=== PATIENT | male | born 1950 | race Caucasian/White ===

== ENCOUNTER → 2022-03-07 13:40 | Outpatient (BNVA) | payer MEDICARE, MEDICAID, SELFPAY | PROVIDERS: Visit Provider Psychiatry & Neurology Neurology | DX: G40.909 Epilepsy, unspecified, not intractable, without status epilepticus (principal); R27.0 Ataxia, unspecified; Z79.899 Other long term (current) drug therapy | CPT/HCPCS: 99202 ==

== ENCOUNTER 2022-03-27 12:46 | Outpatient (REF) | payer MEDICARE, MEDICAID, SELFPAY ==
--- NOTE | 2022-03-27 12:52 | EEG_ITS ---
Waking background activity consists of a well-defined moderate voltage 9 hertz alpha frequency, intermixed anteriorly with low-voltage fast frequencies. Photic stimulation is without activation. Hyperventilation was omitted. No focal, lateralizing, or paroxysmal discharges seen. IMPRESSION: This awaking EEG is within normal limits. MD NELA Arreola/ALISON / [id number]
== END 2022-03-27 12:47 | disposition home or self-care (01) ==
LOC: HO.NEURO 12:46
PROVIDERS: PCP Internal Medicine; Visit Provider Psychiatry & Neurology Neurology
DX: G40.909 Epilepsy, unspecified, not intractable, without status epilepticus (principal)
CPT/HCPCS: 95816

== ENCOUNTER → 2022-07-01 12:27 | Outpatient (BNVA) | payer MEDICARE, MEDICAID, SELFPAY | PROVIDERS: PCP Internal Medicine; Visit Provider Psychiatry & Neurology Neurology | DX: G40.909 Epilepsy, unspecified, not intractable, without status epilepticus (principal); R27.0 Ataxia, unspecified; Z79.899 Other long term (current) drug therapy | CPT/HCPCS: 99212 ==

== ENCOUNTER 2022-08-02 10:58 | Outpatient (REF) | payer MEDICARE, MEDICAID, SELFPAY ==
--- NOTE | ~2022-08-02 | MR_ITS ---
EXAMINATION: MR BRAIN WITHOUT CONTRAST CLINICAL INFORMATION: Ataxia. COMPARISON: None available. TECHNIQUE: MRI of the brain was obtained using routine sequences without contrast. FINDINGS: No focal restricted diffusion is demonstrated to suggest acute or subacute cerebral ischemia. No evidence of acute or chronic hemorrhagic products on heme-sensitive imaging. Scattered and partially confluent periventricular, deep white matter, and brainstem T2 FLAIR hyperintensities consistent with moderate underlying microangiopathy. Proportional prominence of the ventricles and sulcal spaces without evidence of obstructive hydrocephalus. No abnormal mass effect. No midline shift. Normal appearance of the pituitary gland. Normal positioning of the cerebellar tonsils. Normal arterial and venous vascular flow voids are present. Normal, homogeneous marrow signal. Moderate mucosal thickening of the paranasal sinuses. Mild rightward nasal septal deviation. Small left-sided mastoid effusion. No signal abnormalities within the right-sided mastoid. MR/MR head/brain wo con IMPRESSION: 1. No acute intracranial abnormalities. 2. Moderate underlying microangiopathy and generalized cerebral volume loss.
== END 2022-08-02 10:59 | disposition home or self-care (01) ==
LOC: HO.MRI 10:58
PROVIDERS: PCP Internal Medicine; Visit Provider Psychiatry & Neurology Neurology
DX: R27.0 Ataxia, unspecified (principal)
CPT/HCPCS: 70551

== ENCOUNTER 2023-01-13 12:28 | Outpatient (AMB) | payer MEDICARE, MEDICAID, SELFPAY ==
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
[2023-01-13 12:46] VITALS: BP 126/70; PULSE 92; RESP 16; O2SAT 96; BMI 26.2
== END 2023-01-13 13:13 | disposition home or self-care (01) ==
PROVIDERS: Visit Provider Psychiatry & Neurology Neurology
DX: G40.909 Epilepsy, unspecified, not intractable, without status epilepticus (principal); R27.0 Ataxia, unspecified
CPT/HCPCS: 99214

== ENCOUNTER → 2023-01-13 12:28 | Outpatient (BNVA) | payer MEDICARE, MEDICAID, SELFPAY | PROVIDERS: Visit Provider Psychiatry & Neurology Neurology | DX: G40.409 Other generalized epilepsy and epileptic syndromes, not intractable, without status epilepticus (principal); R27.0 Ataxia, unspecified; H91.90 Unspecified hearing loss, unspecified ear | CPT/HCPCS: 99212 ==

== ENCOUNTER 2023-07-15 12:01 | Outpatient (AMB) | payer MEDICARE, MEDICAID, SELFPAY ==
[2023-07-15 12:27] VITALS: BP 106/68; PULSE 92; RESP 17; O2SAT 93; BMI 27.0
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
== END 2023-07-15 12:56 | disposition home or self-care (01) ==
PROVIDERS: PCP Internal Medicine; Visit Provider Psychiatry & Neurology Neurology
DX: G40.909 Epilepsy, unspecified, not intractable, without status epilepticus (principal); R27.0 Ataxia, unspecified
CPT/HCPCS: 99214

== ENCOUNTER 2023-07-15 13:13 | Outpatient (REF) | payer MEDICARE, MEDICAID, SELFPAY ==
[2023-07-15 18:54] LABS: MANUAL DIFF FLAG NO
[2023-07-15 19:09] LABS: Basophils Percent Auto 0.4 % (0-2); Eosinophils Absolute Auto 0.2 X10*3/uL (0.0-0.4); Eosinophils Percent Auto 3.1 % (0-4); Hematocrit 40.8 % (42.0-52.0); Hemoglobin 13.4 g/dl (14.0-18.0); Imm Gran Abs Auto 0.06 X10*3/uL (0.00-0.03); Imm Gran Pct Auto 0.8 % (0.0-0.4); Lymphocytes Absolute Auto 2.3 X10*3/uL (1.2-4.9); Lymphocytes Percent Auto 31.9 % (20-40); Mean Corpuscular HGB Conc 32.8 g/dl (31.0-36.0); Mean Corpuscular Hemoglobin 31.8 pg (27.0-33.0); Mean Corpuscular Volume 96.7 fL (80.0-98.0); Mean Platelet Volume 11.4 fL (9.4-12.4); Monocytes Absolute Auto 0.9 X10*3/uL (0.1-1.2); Neutrophils Absolute Auto 3.7 x10*3/uL (2.0-8.3); Neutrophils Percent Auto 51.8 % (45-73); Platelet Count 151 X10*3/uL (160-400); Red Blood Count 4.22 X10*6/uL (4.60-5.80); Red Cell Distribution Width 13.4 % (11.0-16.0); White Blood Count 7.1 X10*3/uL (4.8-10.8)
[2023-07-15 19:30] LABS: Valproate 78.8 mcg/mL (50.0-100.0)
[2023-07-15 19:35] LABS: Alanine Aminotransferase 16 U/L (0-40); Albumin Level 3.2 g/dL (3.5-5.0); Alkaline Phosphatase 67 U/L (39-117); Anion Gap 16 (12-20); Aspartate Amino Transferase 24 U/L (5-37); Bilirubin Total 0.3 mg/dL (0.0-1.0); Blood Urea Nitrogen 35 mg/dL (9-16); Calcium 9.1 mg/dL (8.4-10.2); Carbon Dioxide 27 mmol/L (22-29); Chloride 106 mmol/L (96-108); Estimated Glomerular Filt Rate 44; Glucose Random 95 mg/dL (60-115); Potassium 5.6 mmol/L (3.3-5.1); Sodium 143 mmol/L (135-145); Total Protein 7.4 g/dL (6.5-8.0)
== END 2023-07-15 13:14 | disposition home or self-care (01) ==
LOC: HO.HKASLDS 13:13
PROVIDERS: Visit Provider Psychiatry & Neurology Neurology
DX: G40.909 Epilepsy, unspecified, not intractable, without status epilepticus (principal); R27.0 Ataxia, unspecified
CPT/HCPCS: 36415; 80053; 80164; 85025; 99212

== ENCOUNTER 2023-10-17 09:09 | Outpatient (AMB) | payer MEDICARE, MEDICAID, SELFPAY ==
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
[2023-10-17 09:23] VITALS: BP 118/68; PULSE 100; RESP 16; BMI 26.7
== END 2023-10-17 09:57 | disposition home or self-care (01) ==
PROVIDERS: PCP Internal Medicine; Visit Provider Psychiatry & Neurology Neurology
DX: G40.909 Epilepsy, unspecified, not intractable, without status epilepticus (principal); I69.393 Ataxia following cerebral infarction
CPT/HCPCS: 99214; G2211

== ENCOUNTER → 2023-10-17 09:09 | Outpatient (BNVA) | payer MEDICARE, MEDICAID, SELFPAY | PROVIDERS: PCP Internal Medicine; Visit Provider Psychiatry & Neurology Neurology | DX: G40.909 Epilepsy, unspecified, not intractable, without status epilepticus (principal); R27.0 Ataxia, unspecified; Z86.73 Personal history of transient ischemic attack (TIA), and cerebral infarction without residual deficits | CPT/HCPCS: 99212 ==

== ENCOUNTER 2024-01-21 08:52 | Outpatient (AMB) | payer MEDICARE, MEDICAID, SELFPAY ==
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
[2024-01-21 08:57] VITALS: BP 108/70; PULSE 94; O2SAT 99; BMI 27.3
== END 2024-01-21 09:44 | disposition home or self-care (01) ==
PROVIDERS: PCP Internal Medicine; Visit Provider Psychiatry & Neurology Neurology
DX: G40.909 Epilepsy, unspecified, not intractable, without status epilepticus (principal); I69.393 Ataxia following cerebral infarction
CPT/HCPCS: 99214; G2211

== ENCOUNTER → 2024-01-21 08:52 | Outpatient (BNVA) | payer MEDICARE, MEDICAID, SELFPAY | PROVIDERS: PCP Internal Medicine; Visit Provider Psychiatry & Neurology Neurology | DX: G40.909 Epilepsy, unspecified, not intractable, without status epilepticus (principal); R27.0 Ataxia, unspecified; Z86.73 Personal history of transient ischemic attack (TIA), and cerebral infarction without residual deficits | CPT/HCPCS: 99212 ==

== ENCOUNTER 2024-06-30 12:24 | Outpatient (AMB) | payer OTHER, MEDICAID, MEDICARE, SELFPAY ==
[2024-06-30 12:53] VITALS: BP 99/72; PULSE 83; O2SAT 97; BMI 28.7
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
--- OUTSIDE RECORDS SUMMARY | 2024-06-30 13:35 | XMS_ITS | Encounter Summary ---
Author Organization [facility] Address [address] [place] [address] Care Team Providers Care Body Sander Name Role Phone Rodney Morfin MD Primary Care Provider [phone] Reason for Visit * Reason Onset Date Comments Navjot: Fax med list 06/24/2024 Encounter Details Date Type Department Care Team (Late st Contact Info) Description 06/24/2024 Telephone Internal Medicine - [place] [facility] [address] [place] [id number] Rodney Morfin MD 175 [facility] [address] [place], [place] [id number] Navjot: Fax med list Social History Tobacco Use Types Packs/Day Years Used Date Smoking Tobacco: Never Smokeless Tobacco: Never Alcohol Use Standard Drinks/Week Comments Not Currently 0 (1 standard drink = 0.6 oz pur e alcohol) Sex and Gender Information Value Date Recorded Sex Assigned at Not on file Legal Sex Male 9:36 PM EST Gender Identity Not on file Sexual Orientation Not on file documented as of this encounter Progress Notes * Remedios Doe - 06/29/2024 9:39 AM EDT Regina (nurse keycase assembler) from [facility] called again regarding messages below. She received the diagnosis list and she stated pt has dx code F32.A for depression. She asked if there were any other ICD 10 codes pt has for this. Please advise. Call back [phone] * Oseas Ayoub MA - 06/25/2024 2:12 PM EDT Not immunization record and recent labs. Pt has orders placed on 03/25/2024. Pt did not do the lab works yet. Med list and diagnostic list faxed to [facility] Nurse keycase assembler as requested. Fax #: [phone]. * Jamila Donovan - 06/24/2024 2:20 PM EDT [facility] nurse keycase assembler called and requested diagnoses list with ICD 10 code, med list, and any labsrecently and immunization records because his new plan starts as of 06/28/24. Please advise Cb# [phone] documented in this encounter Plan of Treatment Upcoming Encounters Date Type Department Care Team (Late st Contact Info) Description 08/05/2024 1:00 PM EDT Office Visit Orthopedic Surgery - [place] [address] [phone] Dudley Powers DPM [address] [address] 09/23/2024 1:00 PM EDT Office Visit Internal Medicine - [place] [address] [phone] Rodney Morfin MD 175 [facility] [address] [place] [address] documented as of this encounter Visit Diagnoses Not on filedocumented in this encounter Additional Health Concerns Assessment Noted Time PHQ-9 Depression Total Score: 0 03/25/19 10:57 AM EST A fall risk assessment has been complete d for the patient 03/25/2024 10:53 AM EST documented as of this encounter Care Teams Body Sander Relationship Specialty Start Date End Date Rodney Morfin MD 175 [place] [address] PCP - General Internal Medicine 05/14/21 documented as of this encounter
--- OUTSIDE RECORDS SUMMARY | 2024-06-30 13:35 | XMS_ITS | Clinical Summary ---
Author Organization Patient Business Ser [facility] Address [address] [place] [address] Care Team Providers Care Protection Chief Industrial Plant Name Role Phone Rodney Morfin MD Primary Care Provider [phone] Allergies No known active allergies Medications acetaminophen (TYLENOL 8 HOUR) 650 mg 8 hr tablet Take 1 Tablet by mouth every 4 hours as needed. Active divalproex (DEPAKOTE) [address] tablet Take 1 Tablet by mouth 2 times daily Active aspirin 81 mg EC tablet TAKE 1 TABLET (81 MG TOTAL) BY MOUTH 1 (ONE) TIME EACH DAY. 30 tablet 5 Active atorvastatin (LIPITOR) 80 mg tablet Take 1 tablet (80 mg total) by mouth 1 (one) time each day. 30 tablet 4 5 Active atorvastatin (LIPITOR) 80 mg tablet Take 1 Tablet by mouth daily. 06/29/19 25 Discontinued Active Problems Problem Noted Date Diagnosed Date Other fracture of upper and lower end of left fibula, subsequent encounter for closed fracture with routine healing 02/20/2024 Epilepsy, unspecified, not i ntractable, without status epilepticus ([facility] V24, [facility] V28) 02/20/2024 Assessment & Plan (03/25/2024 12:06 PM EST): Epilepsy stable on Depakote .check labs including CBC, CMP, TSH, lipid panel. Orders: CBC and differential; Future Comprehensive metabolic panel; Future Lipid panel with reflex to direct LDL; Future Thyroid stimulating hormone; Future Depression, unspecified 02/20/2024 Chronic kidney disease, stage 3 ([facility] V24, [facility] V28) 02/20/2024 Hyperlipidemia, unspecified 02/20/2024 Acute kidney failure, unspecified ([facility] V24) 02/20/2024 Encounters Date Type Department Care Team Description 06/24/2024 Telephone Internal Medicine - [place] 175 [facility] [address] [place] [address] Rodney Morfin MD Joseph: Fax med list 06/02/2024 1:00 PM EDT Office Visit Orthopedic Surgery [facility] 250 [address] [facility] [address] [place] [address] Dudley Powers DPM Metatarsalgia, right foot (Primary Dx); Other closed fracture of distal end of left fibula, sequela; Hammertoes of both feet; Arthritis of both feet; Dermatophytosis, nail from Last 3 Months Medical History Medical History Date Comments Stroke ([facility] V24, [facility] V28) DX:Stroke ([facility]) Depression DX:Depression Social History Tobacco Use Types Packs/Day Years Used Date Smoking Tobacco: Never Smokeless Tobacco: Never Tobacco Cessation:Counseling Given: Not Answered Alcohol Use Standard Drinks/Week Comments Not Currently 0 (1 standard drink = 0.6 oz pur e alcohol) Sex and Gender Information Value Date Recorded Sex Assigned at Not on file Legal Sex Male 9:36 PM EST Gender Identity Not on file Sexual Orientation Not on file Obstetrics History Last Filed Vital Signs Vital Sign Reading Time Taken Comments Blood Pressure 112/64 03/25/2024 10:48 AM EST Pulse 86 03/25/2024 10:48 AM EST Temperature 35.6 ??C (96 ??F) 03/25/2024 10:48 AM EST Respiratory Rate - - Oxygen Saturation 97% 03/25/2024 10:48 AM EST Inhaled Oxygen Concentration - - Weight 82.6 kg (182 lb) 06/02/2024 1:13 PM EDT Height 178.8 cm (5' 10.39 ) 06/02/2024 1:13 PM E DT Body Mass Index 25.82 06/02/2024 1:13 PM EDT Plan of Treatment Upcoming Encounters Date Type Department Care Team (Late st Contact Info) Description 08/05/2024 1:00 PM EDT Office Visit Orthopedic Surgery - [place] 250 [address] [facility] [address] [place] [phone] Dudley Powers DPM 175 [facility] [address] [place] [address] 09/23/2024 1:00 PM EDT Office Visit Internal Medicine - [place] 175 [facility] [address] [place] [address] Rodney Morfin MD 175 [facility] [address] [place] [address] Health Maintenance Due Date Last Done Comments COVID-19 Vaccine (#1) 1954 Zoster Vaccines (1 of 2) 10/26/1999 Pneumococcal Vaccine: 50+ Years (2 of 2 - PCV) 12/25/2017 12/25/2016, 11/19/2014 Cholesterol Screening (Lipid Panel) 02/03/2022 Hepatitis C Screening 02/03/2022 Social Influencers of Health Screening 02/03/2022 Hypertension/CHF/CAD Annual BMP Blood Test 03/25/2024 RSV Immunization Adult Patients (1 - 1-dose 75+ series) 2024 DTaP,Tdap,and Td Vaccines (2 - Td or Tdap) 11/06/2024 11/06/2014 Depression Screening 03/25/2025 03/25/2024 Falls Risk Assessment 03/25/2025 03/25/2024, 025 Medicare Annual Wellness Visit 03/25/2025 03/25/2024 Colorectal Cancer Screening: Colonoscopy 06/07/2025 06/07/2022 Influenza Vaccine Completed 02/17/2024, , 03/11/2022, Additional history exists HIB Vaccines Aged Out No longer eligi ble based on patient's age to complete this topic HPV Vaccines Aged Out No longer eligi ble based on patient's age to complete this topic Hepatitis A Vaccines Aged Out No long er eligible based on patient's age to complete this topic Hepatitis B Vaccines Aged Out No long er eligible based on patient's age to complete this topic IPV Vaccines Aged Out No longer eligi ble based on patient's age to complete this topic MMR Vaccines Aged Out No longer eligi ble based on patient's age to complete this topic Meningococcal ACWY Vaccine Aged Out N o longer eligible based on patient's age to complete this topic Meningococcal B Vaccine Aged Out No l onger eligible based on patient's age to complete this topic RSV Immunization Patients Under 20 months Aged Out No longer eligible based on patient's age to complete this topic Varicella Vaccines Aged Out No longer eligible based on patient's age to complete this topic Procedures Procedure Name Priority Date/Time Associated Diagnosis Comments COLONOSCOPY Routine 06/07/2022 from Last 3 Months or Most Recently Relevant to Health Maintenance Results * Colonoscopy (06/07/2022) Colonoscopy No interpretation , abstracted Anatomical Region Laterality Modality Other Historical Provider MD HEALTH MAINTENANCE Final Result from Last 3 Months or Most Recently Relevant to Health Maintenance Insurance MEDICARE MEDICAID - [place] Advance Directives Documents on File Type Date Recorded 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 Health Care Decision (hx) 08/23/2023 AD MARTINI DIRECTIVE Health Care Decision (hx) 08/18/2023 HE ALTH CARE PROXY Health Care Decision (hx) 08/18/2023 HE ALTH CARE PROXY Health Care Decision (hx) 08/18/2023 HE ALTH CARE PROXY Health Care Decision (hx) 08/06/2023 HE ALTH CARE PROXY Health Care Decision (hx) 08/06/2023 HE ALTH CARE PROXY Health Care Decision (hx) 08/06/2023 HE ALTH CARE PROXY Care Teams Protection Chief Industrial Plant Relationship Specialty Start Date End Date Rodney Morfin MD [address] [facility] [address] [place] [address] PCP - General Internal Medicine 05/14/21
--- OUTSIDE RECORDS SUMMARY | 2024-06-30 13:35 | XMS_ITS | Clinical Summary ---
Author Organization [facility] Address [address] [place] [address] Care Team Providers Care Finger Grip Machine Operator Name Role Phone Rodney Morfin MD Primary Care Provider Unavailab le Allergies No known active allergies Medications Medication Sig Dispensed Refills Start Date End Date Status atorvastatin (LIPITOR) tablet 80 mg Take 1 tablet (80 mg total) by mouth daily. 0 Active aspirin EC 81 MG tablet Take 1 tablet (81 mg total) by mouth daily. 0 Active divalproex (DEPAKOTE) [address] tablet Take 1 tablet (500 mg total) by mouth 3 (three) times a day. 0 Active divalproex (DEPAKOTE) 500 MG 24 hr tablet Take 1 tablet (500 mg total) by mouth daily. 0 Active Social History Tobacco Use Types Packs/Day Years Used Date Smoking Tobacco: Never Smokeless Tobacco: Never Tobacco Cessation:Counseling Given: Not Answered Alcohol Use Standard Drinks/Week Comments Not Currently 0 (1 standard drink = 0.6 oz pur e alcohol) Sex and Gender Information Value Date Recorded Sex Assigned at Not on file Gender Identity Not on file Sexual Orientation Not on file Job Start Date Occupation Industry Not on file Not on file Not on file Last Filed Vital Signs Vital Sign Reading Time Taken Comments Blood Pressure 91/56 11/04/2023 11:35 AM EDT Pulse 90 11/04/2023 11:35 AM EDT Temperature 36.3 ??C (97.4 ??F) 11/04/2023 11:35 AM E DT Respiratory Rate - - Oxygen Saturation 90% 11/04/2023 11:35 AM EDT Inhaled Oxygen Concentration - - Weight 83 kg (183 lb) 11/04/2023 11:34 AM EDT Height 177.8 cm (5' 10 ) 11/04/2023 11:34 AM EDT Body Mass Index 26.26 11/04/2023 11:34 AM EDT Plan of Treatment Health Maintenance Due Date Last Done Comments Hepatitis C Screening 1950 COVID-19 Vaccine (#1) 04/24/1950 Depression Screening 1961 Preventative Health Evaluation 10/26/1967 DTap / Tdap / Td (1 - Tdap) 1968 Colon Cancer Screening (Colonoscopy) 1994 Shingrix-Zoster Vaccine (1 of 2) 10/26/1999 Fall Risk Assessment 2014 Pneumococcal Vaccine (1 of 1 - PCV) 2014 Influenza Vaccine (#1) 2023 RSV Adult > 60+ Yrs or Pregn ant (1 - 1-dose 75+ series) 2024 Hepatitis B Vaccines Aged Out No long er eligible based on patient's age to complete this topic RSV Ped < 20 months Aged Out No longe r eligible based on patient's age to complete this topic Care Teams Finger Grip Machine Operator Relationship Specialty Start Date End Date Rodney Morfin MD PCP - General Internal Medicine 09/24/23
== END 2024-06-30 13:13 | disposition home or self-care (01) ==
LOC: HO.HSMS 12:24
PROVIDERS: PCP Internal Medicine; Visit Provider Psychiatry & Neurology Neurology
DX: G40.909 Epilepsy, unspecified, not intractable, without status epilepticus (principal); I69.393 Ataxia following cerebral infarction
CPT/HCPCS: 99214

== ENCOUNTER → 2024-06-30 12:24 | Outpatient (BNVA) | payer OTHER, SELFPAY | PROVIDERS: PCP Internal Medicine; Visit Provider Psychiatry & Neurology Neurology | DX: Z13.89 Encounter for screening for other disorder (principal) ==

== ENCOUNTER 2024-12-22 13:30 | Outpatient (AMB) | payer OTHER, MEDICAID, SELFPAY ==
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
[2024-12-22 13:56] VITALS: BP 108/70; PULSE 95; O2SAT 98; BMI 29.0
--- OUTSIDE RECORDS SUMMARY | 2024-12-22 17:21 | XMS_ITS ---
Author Name [facility] Organization Unknown Care Team Organization Name Specialty Phone Email Start Date End Da te [facility] 10/13/2024 12/06/2024 [facility] TRESA OCAMPO Primary Care 08/02/2022 10/13/19 24
--- OUTSIDE RECORDS SUMMARY | 2024-12-22 17:21 | XMS_ITS | Clinical Summary ---
Author Organization [facility] Address [address] [place] [address] Care Team Providers Care Computerized Table Cutter Name Role Phone Rodney Morfin MD Primary [...] 90 11/04/2023 11:35 AM EDT Temperature 36.3 C (97.4 F) 11/04/2023 11:35 AM EDT Respiratory Rate - - Oxygen Saturation 90% [...] 1 - PCV) 2014 Influenza Vaccine (#1) 2024 RSV Adult > 60+ Yrs or Pregn ant (1 - 1-dose 75+ series) 2024 Hepatitis B Vaccines Aged Out No long er eligible based on patient's age to complete this topic RSV Ped < 20 months Aged Out No longe r eligible based on patient's age to complete this topic Care Teams Computerized Table Cutter Relationship Specialty Start Date End Date Rodney Morfin MD PCP - General Internal Medicine 09/24/23
--- OUTSIDE RECORDS SUMMARY | 2024-12-22 17:21 | XMS_ITS | Clinical Summary ---
Author Organization Patient Business Ser [facility] Address [address] [place] [address] Care Team Providers Care Entry Level Account Executive Name Role Phone Rodney Morfin MD Primary Care Provider [phone] Allergies No known active allergies Medications acetaminophen (TYLENOL 8 HOUR) 650 mg 8 hr tablet Take 1 Tablet by mouth every 4 hours as needed. Active divalproex (DEPAKOTE) [address] tablet Take 1 Tablet by mouth 2 times daily Active aspirin 81 mg EC tablet TAKE 1 TABLET (81 MG TOTAL) BY MOUTH 1 (ONE) TIME EACH DAY. 30 tablet 05/24/2024 Active atorvastatin (LIPITOR) 80 mg tablet TAKE 1 TABLET BY MOUTH DAILY. 30 tablet 09/24/2024 Active Active Problems Problem Noted Date Diagnosed Date Other fracture of upper and lower end of left fibula, subsequent encounter for closed fracture with routine healing 02/20/2024 Epilepsy, unspecified, not i ntractable, without status epilepticus (CMS/HCC V24, CMS/HCC V28) 02/20/2024 Assessment & Plan (03/25/2024 12:06 PM EST): Epilepsy stable on Depakote .check labs including CBC, CMP, TSH, lipid panel. Orders: CBC and differential; Future Comprehensive metabolic panel; Future Lipid panel with reflex to direct LDL; Future Thyroid stimulating hormone; Future Depression, unspecified 02/20/2024 Chronic kidney disease, stage 3 ([facility] V24, [facility] V28) 02/20/2024 Hyperlipidemia, unspecified 02/20/2024 Acute kidney failure, unspecified ([facility] V24) 02/20/2024 Encounters Date Type Department Care Team Description 12/15/2024 1:15 PM EDT Office Visit Orthopedic Surgery [facility] [address] [phone] Dudley Powers DPFermin Metatarsalgia, right foot (Primary Dx); Hammertoes of both feet; Arthritis of both feet; Contusion of left great toe with damage to nail, sequela; Dermatophytosis, nail 10/22/2024 8:15 AM EDT Office Visit Internal Medicine [facility] 175 [facility] [address] [place] [phone] Rodney Morfin MD Neck pain (Primary Dx); Other generalized epilepsy, not intractable, without status epilepticus ([facility] V24, [facility] V28); Hypercholesterolemia 10/07/2024 1:45 PM EDT Office Visit Orthopedic Surgery [facility] [address] [phone] Dudley Powers DPM Hammertoes of both feet (Primary Dx); Arthritis of both feet; Metatarsalgia, right foot; Dermatophytosis, nail from Last 3 Months Medical History Medical History Date Comments Stroke ([facility] V24, [facility] V28) DX:Stroke ([facility]) Depression DX:Depression Social History Tobacco Use Types [...] Sign Reading Time Taken Comments Blood Pressure 120/60 10/22/2024 8:27 AM EDT Pulse 76 10/22/2024 8:27 AM EDT Temperature 36 C (96.8 F) 10/22/2024 8:27 AM EDT Respiratory Rate - - Oxygen Saturation 98% 10/22/2024 8:27 AM EDT Inhaled Oxygen Concentration - - Weight 90.2 kg (198 lb 12.8 oz) 10/22/2024 8:27 AM EDT Height 177.8 cm (5' 10 ) 10/22/2024 8:27 AM EDT Body Mass Index 28.52 10/22/2024 8:27 AM EDT Plan of Treatment Upcoming Encounters Date Type Department Care Team (Late st Contact Info) Description 02/15/2025 1:30 PM EST Office Visit Orthopedic Surgery - [place] 250 175 [facility] [address] [place] [phone] Dudley Powers DPM [address] [place] [address] 04/13/2025 8:30 AM EST Office Visit Internal Medicine - [place] 175 [facility] [address] [place] [address] Rodney Morfin MD [address] [place] [phone] Health Maintenance Due Date Last Done Comments COVID-19 Vaccine (#1) 1954 Zoster Vaccines (1 of 2) 1968 Pneumococcal Vaccine: 50+ Years (2 of 2 - PCV) 12/25/2017 12/25/2016, 11/19/2014 Cholesterol Screening (Lipid Panel) 02/03/2022 Hepatitis C Screening 02/03/2022 Social Influencers of Health Screening 02/03/2022 Influenza Vaccine (#1) 2024 , 11/20/2022, 03/11/2022, Additional history exists RSV Immunization Adult Patients (1 - 1-dose 75+ series) 2024 DTaP,Tdap,and Td Vaccines (2 - Td or Tdap) 11/06/2024 11/06/2014 Falls Risk Assessment 03/25/2025 03/25/2024, 025 Medicare Annual Wellness Visit 03/25/2025 03/25/2024 Colorectal Cancer Screening: Colonoscopy 06/07/2025 06/07/2022 Depression Screening Completed 03/25/2024 HIB Vaccines Aged Out No longer eligi [...] Anatomical Region Laterality Modality Other Historical Provider HEALTH MAINTENANCE Final Result from Last 3 Months or Most Recently Relevant to Health Maintenance Insurance MEDICAID - [place] [employer] MEDICARE Advance Directives Documents on File Type Date Recorded Patient Patient Safety Attendant Expl anation Health Care Decision (hx) 08/23/2023 [...] 08/06/2023 HE ALTH CARE PROXY Care Teams Entry Level Account Executive Relationship Specialty Start Date End Date Rodney Morfin MD 175 [facility] [address] [place] [address] PCP - General Internal Medicine 05/14/21
== END 2024-12-22 14:40 | disposition home or self-care (01) ==
LOC: HO.HSMS 13:31
PROVIDERS: PCP Internal Medicine; Visit Provider Psychiatry & Neurology Neurology
DX: G40.909 Epilepsy, unspecified, not intractable, without status epilepticus (principal); I69.393 Ataxia following cerebral infarction
CPT/HCPCS: 99214

== ENCOUNTER → 2025-01-06 23:59 | Outpatient (BNV) | payer OTHER, SELFPAY | PROVIDERS: PCP Internal Medicine; Visit Provider Psychiatry & Neurology Neurology | DX: G40.909 Epilepsy, unspecified, not intractable, without status epilepticus (principal); R27.0 Ataxia, unspecified | CPT/HCPCS: G0180 ==